=== PATIENT | male | born 1980 | race Caucasian/White ===

== ENCOUNTER 2016-06-28 18:38 | Emergency (ER) | payer MEDICAID, OTHER ==
[~2016-06-28] VITALS: Ht 182.9 cm; Wt 90.0 kg
[2016-06-28 19:07] VITALS: Ht 182.9 cm; Wt 90.0 kg
[2016-06-28] MEDS ORDERED: ACET500C5 PO (20:00)
[2016-06-28] MEDS ORDERED: DIPHTH/TET/ACEL PERTUSS (ADULT) 0.5 ML VIAL IM* ONE (20:00)
--- NOTE | 2016-06-28 20:05 | RADRPT ---
PROCEDURE: CT Brain without contrast. CLINICAL INDICATION: Trauma. Pain. TECHNIQUE: Serial axial computed tomographic images of the brain was performed on a CT scanner fro m the skull base through the vertex without contrast. CTDlvol = 44 mGy and DLP = 720 mGy-cm. COMPARISON: None available. FINDINGS: There is right frontal subcutaneous soft tissue swelling without an underlying fracture. The ventri cles and sulci are normal in size and configuration. There is no midline shift. There are no focal parenchymal abnormalities. There is no acute stroke. No acute intracranial hemorrhage or abnormal extra-axial fluid collection. Visualized paranasal sinuses are clear. IMPRESSION: 1. No acute intracranial post-traumatic abnormality. 2. Right frontal subcutaneous soft tissue swelling without an underlying fracture. RPTAT: [facility]VK .Enmanuel Rahman MD, MD Date Time Electronically viewed and signed by .Enmanuel Rahman MD, MD on 06/28/2016 20:05 .K/
--- NOTE | 2016-06-28 20:17 | ERD ---
ER Documentation Chief Complaint Date/Time DATE: 06/28/16 TIME: 20:15 Chief Complaint HPI This patient presents with complaints of head injury, hematoma and bleeding on the right side of his head after getting hit with a pull that fell from the wall in his shop. He had some nausea and brief blurry vision but currently complains of no nausea vomiting, visual changes or neck pain, weakness. ROS All systems reviewed and are negative except as per history of present illness. Medications Home Meds Active Scripts Acetaminophen* (Tylophen*) 500 Mg Capsule, 1 CAP PO Q6H Y for PAIN AND OR ELEVATED TEMP, #15 CAP Prov:EDITH HWANG MD 06/28/16 PMhx/Soc Medical and Surgical Hx: pt denies Medical Hx, pt denies Surgical Hx History of Surgery: No Anesthesia Reaction: No Hx Neurological Disorder: No Hx Respiratory Disorders: No Hx Cardiac Disorders: No Hx Psychiatric Problems: No Hx Miscellaneous Medical Probl: No Hx Alcohol Use: No Hx Substance Use: No Hx Tobacco Use: No Smoking Status: Never smoker Physical Exam Vitals Vital Signs Date Time Temp Pulse Resp B/P Pulse Ox O2 Delivery O2 Flow Rate FiO2 06/28/16 19:07 98.1 67 20 142/90 97 Physical Exam Const: [] Alert, [id number] per Head: Atraumatic there is a large hematoma with some bleeding the right frontoparietal area of his scalp. Hematoma was enlarged and unable to appreciate any underlying step-offs or deformities. There is approximately 3 mm superficial laceration with no active bleeding. Eyes: Normal Conjunctiva ENT: Normal External Ears, Nose and Mouth. Neck: Full range of motion..~ No meningismus. Nontender Resp: Clear to auscultation bilaterally Cardio: Regular rate and rhythm, no murmurs Abd: Soft, non tender, non distended. Normal bowel sounds Skin: No petechiae or rashes Back: No midline or flank tenderness Ext: No cyanosis, or edema Neur: Awake and alert. Cranial nerves II through XII grossly intact. Normal gait. No appreciable focal neurologic deficits. Psych: Normal Mood and Affect Results 24 hrs Current Medications Medications (Trade) Dose Ordered Sig/Vinod Route PRN Reason Start Time Stop Time Status Last Admin Dose Admin Diphtheria/ Tetanus/Acell Pertussis (Adacel) 0.5 ml ONCE ONCE IM* 06/28/16 20:00 06/28/16 20:01 DC 06/28/16 19:57 Procedures/MDM Wound was cleansed and Dermabond and Steri-Stripped. CT brain was performed given the large size of the hematoma unable to palpate underlying skull. He was read as normal except for scalp hematoma. Patient has no signs of neck injury. Patient discharged home with a prescription of Tylenol instructions for wound check in 2 days, otherwise sooner for signs or symptoms of intracranial injury as directed after instructions. Departure Diagnosis: Primary Impression: Laceration Additional Impression: Acute head injury Encounter type: initial encounter Qualified Code: S09.90XA - Acute head injury, initial encounter Condition: Stable Patient Instructions: HEAD INJURY, No Wake-Up (Adult), Laceration, Small/ Superficial, Not Sutured Additional Instructions: CT read as normal. Recheck for new or worsening symptoms with primary care doctor. EDITH HWANG MD Jun 28, 2016 20:17
== END 2016-06-28 20:15 | disposition home or self-care (01) ==
LOC: FTE 18:38
DX: S01.01XA Laceration without foreign body of scalp, initial encounter (principal); W20.8XXA Other cause of strike by thrown, projected or falling object, initial encounter; Y92.513 Shop (commercial) as the place of occurrence of the external cause; Z23 Encounter for immunization
CPT/HCPCS: 70450; 90471; 90715